=== PATIENT | male | born 1985 | race Caucasian/White ===

== ENCOUNTER 2022-02-25 10:57 | Emergency (ER) | payer OTHER, SELFPAY ==
--- NOTE | ~2022-02-25 | XR_ITS ---
EXAMINATION: XR lumbar spine 2-3V DATE: 02/25/2022 11:26 INDICATION: Low back pain after lifting a riding mower. TECHNIQUE: Anteroposterior and lateral views of the lumbar spine, and cone-down lateral view of the l umbosacral junction were obtained. COMPARISON: None. FINDINGS: 5 degrees lumbar levocurvature. Sagittal alignment is normal. There are hypoplastic riblets at what w ill be designated T12. Transitional L5 segment which is partially sacralized on the left. There is al so nonfusion of the L5 spinous process. Vertebral body heights are normal. No evident fracture. Mild disc height loss at T10-T11, T11-T12, L1-L2 and L4-L5. Mild bilateral hip and sacroiliac osteoarthrit is. IMPRESSION: 1. Mild lumbar levocurvature with mild spondylosis. Reviewed, dictated and finalized at location A.
[2022-02-25 11:06] VITALS: BP 146/86; PULSE 78; RESP 14; TEMP 36.5; O2SAT 100
--- NOTE | 2022-02-25 11:18 | ED.BACK ---
HPI - Back Pain/Injury General Chief Complaint: Back Pain/Injury Stated Complaint: Low Back Pain Time Seen by Provider: 02/25/22 11:18 Source: patient, RN notes reviewed and old records reviewed Mode of arrival: ambulatory Limitations: no limitations History of Present Illness HPI Narrative: 36 year old male presents to [facility] care with complaints of left lower back pain with pain radiating down his left leg to the knee at times since he lifted on riding load builder yesterday around 1200. He states that he has had some intermittent left testicle pain also. Patient has no groin pain, no swelling to groin, no swelling or pain to left testicle on examination and cremasteric reflex is present. Patient reports that his left lower back larson and hurts has taken some Aleve for his discomfort with no alleviation of pain.Patient reports that he does not want any narcotics for pain, had some problems with opiates years ago. MD elicited complaint: back pain Onset (ago): day(s) (1) Pain scale (0-10): 8 Treatments prior to arrival: NSAIDS Related Data Allergies Allergy/AdvReac Type Severity Reaction Status Date / Time No Known Allergies Allergy Verified 02/25/22 11:13 Review of Systems Review of Systems: CONSTITUTIONAL: Denies fever, chills, or sweats. EYES: Denies visual changes, redness, or discharge. ENT: Denies rhinorrhea, congestion, sore throat, or otalgia. CARDIOVASCULAR: Denies chest pain, palpitations, or edema. RESPIRATORY: Denies cough or dyspnea. GASTROINTESTINAL: Denies abdominal pain, nausea, vomiting, or diarrhea. GENITOURINARY: Denies dysuria or hematuria, reports occasional pain to left testicle. SKIN: Denies rash or itching. MUSCULOSKELETAL: positive for left lower back pain radiating down to left knee posteriorly at times with some spasms to back, joint pain, or myalgia. NEUROLOGIC: Denies headache, numbness, or weakness. PSYCHIATRIC: Denies anxiety or depression. All systems reviewed & are unremarkable except as noted in HPI and below PMFSH Comments At time of signature, agree with nursing past medical, surgical, social and family history. There is no relevant family history pertinent to the presenting complaint Exam Narrative: GENERAL: Well-appearing, well-nourished, and in no acute distress. HEAD: Normocephalic, atraumatic. EYES: PERRLA and EOMI. ENT: Nares clear, no rhinorrhea or epistaxis. Mucous membranes moist. NECK: Supple. no lymphadenopathy CHEST: Clear to auscultation. No respiratory distress. HEART: Regular rate and rhythm. No murmur heard. Normal peripheral pulses. ABDOMEN: Soft, nontender, nondistended, normal active bowel sounds. some pain to left testicle reported intermittent with no pain won examination or swelling with cremasteric reflex present, EXTREMITIES: Normal range of motion. No edema.Palpable pain in left lower back and over SI joint with radiation of pain down buttocks posterior aspect of left leg to knee, SKIN: Warm, dry, no rash. NEURO: No focal deficits. Alert and oriented x3. Course Course Level of Care: Express Care Visit Vital Signs Vital signs: Vital Signs Temperature 36.5 C 02/25/22 11:06 Pulse Rate 78 02/25/22 11:06 Respiratory Rate 14 02/25/22 11:06 Blood Pressure 146/86 H 02/25/22 11:06 Pulse Oximetry 100 02/25/22 11:06 Oxygen Delivery Room Air 02/25/22 11:06 Temperature 36.5 C 02/25/22 11:06 Pulse Rate 78 02/25/22 11:06 Respiratory Rate 14 02/25/22 11:06 Blood Pressure 146/86 H 02/25/22 11:06 Pulse Oximetry 100 02/25/22 11:06 Oxygen Delivery Room Air 02/25/22 11:06 MDM - Back Pain/Injury MDM Narrative Medical decision making narrative: Patient instructed that if testicle pain increases in frequency and intensity he must go to ER for further evaluation with understanding verbalized. Differential Diagnosis Differential diagnosis: Likely lumbar radiculopathy, sciatica, strain of lumbar region, discitis and other (osteoarthritis) Me
== END 2022-02-25 12:02 | disposition home or self-care (01) ==
PROVIDERS: Emergency Provider Registered Nurse
DX: S39.012A Strain of muscle, fascia and tendon of lower back, initial encounter (principal); X50.0XXA Overexertion from strenuous movement or load, initial encounter; M54.16 Radiculopathy, lumbar region
CPT/HCPCS: 72100; 99213; G0463